=== PATIENT | female | born 2000 | race Caucasian/White ===

== ENCOUNTER 2022-05-23 10:58 | Emergency (ER) | payer OTHER, SELFPAY ==
[2022-05-23 11:36] VITALS: BP 112/78; PULSE 55; RESP 16; TEMP 36.2; O2SAT 99; BMI 27.8
--- NOTE | 2022-05-23 14:44 | ED.BURNSMOKE ---
HPI - Burn/Smoke Inhalation <CONTRERAS Ewing - Last Filed: 05/23/22 14:48> General Chief complaint: Burn/Smoke Inhalation Stated complaint: Burn on right hand Time Seen by Provider: 05/23/22 14:30 Mode of arrival: Family Vehicle History of Present Illness HPI Narrative: 21-year-old female, nonsmoker, presents emergency department with right hand pain after burning it in an oven at work. Patient states she was reaching in to retract a breakfast burrito, did not use the provided tongs and burned her 1st and 2nd digit of right hand. Patient states that she immediately placed it in ice water and came to the emergency department as soon as she could. Patient denies any blistering. Related Data Allergies Allergy/AdvReac Type Severity Reaction Status Date / Time No Known Drug Allergies Allergy Verified 05/23/22 11:42 Review of Systems <CONTRERAS Ewing - Last Filed: 05/23/22 14:48> Review of Systems Narrative: Narrative: GENERAL: Denies chills, fatigue, fever, sweats. See HPI HEENT: Denies sinus pain, ear pain, sore throat, difficulty swallowing, dizziness. RESPIRATORY: Denies dyspnea, cough, wheezing, sputum. CARDIOVASCULAR: Denies chest pain, palpitations, edema. GASTROINTESTINAL: Denies nausea, vomiting, abdominal pain, diarrhea, constipation. : Denies dysuria, frequency, incontinence, hematuria, urinary retention, flank pain. MSK: Denies weakness, joint pain, or bony pain. SKIN: Endorses painful skin on right hand 1st and 2nd digit. NEUROLOGIC: Denies weakness, dizziness, headache, numbness, confusion. PSYCHIATRIC: No concerning psychosocial issues. Patient History <CONTRERAS Ewing - Last Filed: 05/23/22 14:48> Social History Smoking Status: Never smoker Smoking Status: Never smoker alcohol intake frequency: holidays/special occasions only Substance Use Type: does not use Exam <CONTRERAS Ewing - Last Filed: 05/23/22 14:48> Narrative Exam Narrative: Exam Narrative: GENERAL: This is a well-nourished, well-developed patient, in no acute distress HEAD: Atraumatic. Normocephalic. MSK: Moves all extremities. Normal range of motion, no clubbing or edema. Neurovascularly intact. NEURO: A&O x 3. SKIN: Warm, dry, no rashes or lesions noted. Mild difference of texture noted on right hand 1st and 2nd digit proximal and distal phalange. No redness or blistering noted. Initial Vital Signs Initial Vital Signs: Vital Signs Temperature 97.1 F L 05/23/22 11:36 Pulse Rate 55 L 05/23/22 11:36 Respiratory Rate 16 05/23/22 11:36 Blood Pressure 112/78 05/23/22 11:36 Pulse Oximetry 99 05/23/22 11:36 Oxygen Delivery Method 05/23/22 11:36 Reviewed <Lillian Kelly DO - Last Filed: 05/24/22 08:02> Initial Vital Signs Initial Vital Signs: Vital Signs Temperature 97.1 F L 05/23/22 11:36 Pulse Rate 55 L 05/23/22 11:36 Respiratory Rate 16 05/23/22 11:36 Blood Pressure 112/78 05/23/22 11:36 Pulse Oximetry 99 05/23/22 11:36 Oxygen Delivery Method 05/23/22 11:36 Course <CONTRERAS Ewing - Last Filed: 05/23/22 14:48> Vital Signs Vital signs: Vital Signs - 8 hr 05/23/22 11:36 Temperature 97.1 F L Pulse Rate 55 L Respiratory Rate 16 Blood Pressure 112/78 Pulse Oximetry 99 Oxygen Delivery Method Room Air <Lillian Kelly DO - Last Filed: 05/24/22 08:02> Vital Signs Vital signs: Vital Signs - 8 hr 05/23/22 11:36 Temperature 97.1 F L Pulse Rate 55 L Respiratory Rate 16 Blood Pressure 112/78 Pulse Oximetry 99 Oxygen Delivery Method Room Air MDM - Burn/Smoke Inhalation <CONTRERAS Ewing - Last Filed: 05/23/22 14:48> Differential Diagnosis Differential diagnosis: Likely other (Burn on hand) MDM Narrative Medical decision making narrative: 21-year-old female presents emergency department with a burn to her right hand that occurred at work around 8:00 a.m.. Patient immediately placed hand and ice water and there is no current redness or blistering. L and I paperwork completed. Instructed patient to continue using cooling measures for her hand and Tylenol or ibuprofen as needed for discomfort. Discussed plan of care and return precautions with patient, who was agreeable with course of action. Discharge Plan Departure Patient Disposition: Home Clinical Impression: Burn of hand Instructions: DI for [place] Activity Restrictions/Additional Instructions: *You have been diagnosed with a 1st degree burn of your right hand. I recommend you continue applying cool compresses or soaking in water or ice over the next 24 hours for comfort. Additionally you may use Tylenol or ibuprofen for discomfort. Please make sure your employer is aware of any disabilities you are experiencing so they can ensure you do not dropped anything. We have given you a copy of your L & I paperwork. For any worsening symptoms, please follow-up with your family doctor or feel free to return to the emergency department. *What to do: *Please continue to take your regular medications as directed. [ ] New medication prescriptions sent to your pharmacy: [ ] [ ] New medication written as a paper prescription [x ] No new medications given *Please follow up with your primary care provider in 2-3 days, call for an appointment. Let them know you were seen in the Emergency Department and that we ask that you be seen in follow up. We will electronically transmit a record of today's note if your PCP is in our system *If you do not have a primary care provider please contact the [facility] Resource line at [phone]. They will ask some questions about your medical history and help get you set up with a doctor in the community. ? Return to ER if you should have any new, worsening or concerning symptoms, such as worsening pain, severe headache, confusion, chest pain, difficulty breathing, fever greater than 101 F, shaking chills, persistent vomiting to the point that you cannot drink fluids, or other new or worsening symptoms. Stand Alone Forms: Work Release Note Visit Report Forms: Patient Portal/API <Lillian Kelly DO - Last Filed: 05/24/22 08:02> Viry ED Attending Sari Attestation: I was immediately available in the department for consultation. Documentation has been reviewed. I agree with assessment and plan.
== END 2022-05-23 14:46 | disposition home or self-care (01) ==
PROVIDERS: Emergency Provider Registered Nurse
DX: T23.001A Burn of unspecified degree of right hand, unspecified site, initial encounter (principal); X15.2XXA Contact with hotplate, initial encounter; Y99.0 Civilian activity done for income or pay
CPT/HCPCS: 99281

== ENCOUNTER 2022-08-07 14:47 | Emergency (ER) | payer OTHER, SELFPAY ==
[2022-08-07 15:36] VITALS: BP 132/90; PULSE 64; RESP 14; TEMP 36.4; O2SAT 100; BMI 31.1
[2022-08-07 19:25] VITALS: BP 122/76; PULSE 59; RESP 18; O2SAT 100
--- NOTE | 2022-08-07 20:09 | ED_ITS ---
HPI - Head Injury <Maria De Jesus Bains PA-C - Last Filed: 08/07/22 20:14> General Chief complaint: Head Injury Stated complaint: r/o concussion Time Seen by Provider: 08/07/22 19:14 Source: patient Mode of arrival: Ambulatory History of Present Illness HPI Narrative: 21-year-old female with no reported past medical history presents to the ED status post a head injury sustained while at work. Patient states that she was trying to stand up after reaching into a refrigerator, accidentally hit the top of her head against a big and heavy lock. Patient denies losing consciousness. Patient is not on blood thinners. Patient states that she had a headache for a little while after the injury, and no other symptoms. Patient denies changes in vision, nausea, vomiting, dizziness, loss of balance. Related Data Allergies Allergy/AdvReac Type Severity Reaction Status Date / Time No Known Drug Allergies Allergy Verified 05/23/22 11:42 Review of Systems <Maria De Jesus Bains PA-C - Last Filed: 08/07/22 20:14> Review of Systems ROS Unobtainable: All systems reviewed & are unremarkable except as noted in HPI and below Constitutional Constitutional: Denies chills, Denies fatigue, Denies fever(s), Denies frequent falls, Reports headache(s), Denies lethargy and Denies weakness Eyes Eyes: Denies change in vision, Denies eye discharge, Denies irritation and D enies loss of vision ENT Ears, Nose, Mouth, and Throat: Denies change in voice, Denies dizziness, Reports headache(s), Denies neck pain, Denies sore throat and Denies throat swelling Cardiovascular Cardiovascular: Denies chest pain, Denies irregular heart rhythm, Denies lightheadedness, Denies palpitations, Denies dyspnea, Denies dyspnea on exertion and Denies orthopnea Respiratory Respiratory: Denies cough, Denies dyspnea, Denies dyspnea on exertion and Denies wheezing Gastrointestinal Gastrointestinal: Denies abdominal pain, Denies change in bowel habits, Denies diarrhea, Denies nausea and Denies vomiting Genitourinary Genitourinary: Denies hematuria, Denies flank pain, Denies urinary incontinence and Denies urinary urgency Musculoskeletal Musculoskeletal: Denies back pain, Denies muscle weakness, Denies neck pain, Denies numbness and Denies tingling Integumentary/Breasts Skin/Breast: Denies pruritus, Denies erythema, Denies rash and Denies wounds Neurologic Neurologic: Denies behavioral changes, Denies confusion, Denies dizziness, Denies frequent falls, Reports headache(s), Denies loss of vision, Denies numbness, Denies tingling and Denies weakness Psychiatric Psychiatric: Denies anxiety, Denies behavioral changes, Denies confusion, Denies depression, Denies homicidal ideation and Denies suicidal ideation Endocrine Endocrine: Denies fatigue, Denies flushing and Denies palpitations Hematologic/Lymphatic Hematologic/Lymphatic: Denies easy bruising Allergic/Immunologic Allergic/Immunologic: Denies urticaria, Denies throat swelling and Denies wheezing Patient History <Maria De Jesus Bains PA-C - Last Filed: 08/07/22 20:14> Social History Smoking Status: Never smoker Smoking Status: Never smoker alcohol intake frequency: holidays/special occasions only Substance Use Type: does not use Exam <Maria De Jesus Bains PA-C - Last Filed: 08/07/22 20:14> Narrative Exam Narrative: Const General:?cooperative, healthy appearing and comfortable [facility] Head:? Small 1 cm abrasion noted to the top of the scalp. Not bleeding, no indication for repair at this time. No skull depressions, hematoma noted on exam. Ears:?hearing grossly normal bilaterally Nose:?external nose normal Face and sinus:?normal facial exam and sinuses nontender Mouth:?oral mucosae normal Throat:?posterior oropharynx normal Eyes General:?appearance normal, both eyes and all related structures Neck Neck:?normal visual inspection and no lymphadenopathy noted Resp Effort & Inspection:?normal respiratory effort Auscultation:?clear to auscultation bilaterally Cardio Rate:?regular rate Rhythm:?regular rhythm Neuro General:?patient alert, patient awake and patient oriented x3; gait normal. CN 1 through 12 intact bilaterally, PERRLA Initial Vital Signs Initial Vital Signs: Vital Signs Temperature 97.5 F L 08/07/22 15:36 Pulse Rate 64 08/07/22 15:36 Respiratory Rate 14 08/07/22 15:36 Blood Pressure 132/90 08/07/22 15:36 Pulse Oximetry 100 08/07/22 15:36 Oxygen Delivery Method 08/07/22 15:36 <Lillian Kelly DO - Last Filed: 08/08/22 03:58> Initial Vital Signs Initial Vital Signs: Vital Signs Temperature 97.5 F L 08/07/22 15:36 Pulse Rate 64 08/07/22 15:36 Respiratory Rate 14 08/07/22 15:36 Blood Pressure 132/90 08/07/22 15:36 Pulse Oximetry 100 08/07/22 15:36 Oxygen Delivery Method 08/07/22 15:36 Course <Maria De Jesus Bains PA-C - Last Filed: 08/07/22 20:14> Vital Signs Vital signs: Vital Signs - 8 hr 08/07/22 15:36 08/07/22 19:25 Temperature 97.5 F L Pulse Rate 64 59 L Respiratory Rate 14 18 Blood Pressure 132/90 122/76 Pulse Oximetry 100 100 Oxygen Delivery Method Room Air Room Air <Lillian Kelly DO - Last Filed: 08/08/22 03:58> Vital Signs Vital signs: Vital Signs - 8 hr 08/07/22 15:36 08/07/22 19:25 Temperature 97.5 F L Pulse Rate 64 59 L Respiratory Rate 14 18 Blood Pressure 132/90 122/76 Pulse Oximetry 100 100 Oxygen Delivery Method Room Air Room Air MDM - Head Injury <Maria De Jesus Bains PA-C - Last Filed: 08/07/22 20:14> MDM Narrative Medical decision making narrative: 21-year-old female with no reported past medical history presents to the ED status post a head injury sustained while at work. History and physical exam reassuring, and no imaging is indicated at this time. Symptoms of a concussion were discussed with patient. Patient agrees to follow-up with PCP. ED return precautions were discussed with patient. Patient verbalized understanding. Discharge Plan Departure Patient Disposition: Home Clinical Impression: Head injury Instructions: Concussion, DI for Closed Head Injury Activity Restrictions/Additional Instructions: You were evaluated in the ED today for a head injury sustained just prior to arrival. The history and physical exam are reassuring. There is no indication at this time for any imaging. You may have sustained a concussion from the head injury, and experience some symptoms. Symptoms of a concussion include headache, nausea, vomiting, fatigue, sleepiness, depression, agitation. We advise physical and cognitive rest if you are experiencing any of the signs of a concussion. You may take Tylenol, ibuprofen for your symptoms. Please follow- up with your PCP in a week. Please return to the ED if your symptoms worsen, you are uncontrollably vomiting, you are lethargic. Visit Report Forms: Patient Portal/API <Lillian Kelly DO - Last Filed: 08/08/22 03:58> Cosign ED Attending Viryature Attestation: I was immediately available in the department for consultation. Documentation has been reviewed. I agree with assessment and plan.
== END 2022-08-07 19:32 | disposition home or self-care (01) ==
PROVIDERS: Emergency Provider Student in an Organized Health Care Education/Training Program
DX: S09.90XA Unspecified injury of head, initial encounter (principal); W22.8XXA Striking against or struck by other objects, initial encounter; Y99.0 Civilian activity done for income or pay
CPT/HCPCS: 99281